=== PATIENT | male | born 1945 | race Caucasian/White ===

== ENCOUNTER 2018-03-22 05:03 | Inpatient (IN) | payer MEDICARE, OTHER ==
[2018-03-21 13:14] LABS: INR 1.03
[2018-03-22] VITALS (14 sets, daily range): BP systolic 16–113; BP diastolic 51–92
[~2018-03-22] VITALS: Ht 172.7 cm; Wt 74.8 kg
[~2018-03-22 05:03] MED LIST: ACETAMINOPHEN 500 MG TAB PO ONE; ALFU10TA9 PO; ASPI-839 PO; ATEN-1 PO; LISI-353 PO; PREGABALIN 75 MG CAPSULE PO ONE; SIMV-54 PO
[2018-03-22] MEDS ORDERED: ACETAMINOPHEN 500 MG TAB PO ONE (05:40)
[2018-03-22] MEDS ORDERED: PREGABALIN 75 MG CAPSULE PO ONE (05:40)
[2018-03-22] MEDS ORDERED: ACETAMINOPHEN(*)1000 MG/100 ML 0 ML IVPB ONE (06:15)
[2018-03-22] MEDS ORDERED: PROPOFOL(*)1000 MG/100 ML VIAL 100 ML ONE (06:15)
[2018-03-22] MEDS ORDERED: DEXAMETHASONE SOD 20MG/5 ML VL ONE (06:17)
[2018-03-22] MEDS ORDERED: PROPOFOL EMUL(*) 10MG/ML 20 ML 20 ML ONE ×2 (07:27→07:28)
[2018-03-22] MEDS ORDERED: LIDOCAINE MPF 1% 5 ML VIAL ONE (07:28)
[2018-03-22] MEDS ORDERED: ONDANSETRON 4 MG/2 ML VIAL ONE (07:28)
[2018-03-22] MEDS ORDERED: NS(*) 0.9% 500 ML BAG 500 ML ONE (07:42)
[2018-03-22] MEDS ORDERED: ALBUTEROL/IPRATROPIUM 3 ML NEB ONE ×2 (08:47→14:23)
[2018-03-22] MEDS ORDERED: MIDAZOLAM 2 MG/2 ML VIAL IVP PRN (09:25)
[2018-03-22] MEDS ORDERED: FAMOTIDINE 20 MG TAB PO ONE (09:25)
[2018-03-22] MEDS ORDERED: NORMOSOL R SOLN(*) 1000 ML BAG 1,000 ML IV PRN (09:25)
[2018-03-22] MEDS ORDERED: LIDOCAINE/SOD BICARB 8.4% SYR ID ONE (09:25)
[2018-03-22] MEDS ORDERED: SUGAMMADEX SOD 200 MG/2 ML SDV ONE (09:29)
[2018-03-22] MEDS ORDERED: ceFAZolin(*) 2GM/D5W 50ML 50 ML IVPB ONE (09:30)
[2018-03-22] MEDS ORDERED: fentaNYL CITR 250 MCG/5 ML AMP ONE (09:30)
[2018-03-22] MEDS ORDERED: GELATIN SPONGE SZ 100 ONE (10:25)
[2018-03-22] MEDS ORDERED: BACITRACIN OINT 15 GM TUBE TP ONE (10:25)
[2018-03-22] MEDS ORDERED: ROPIVACAINE 0.2% 20 ML VIAL ONE (10:25)
[2018-03-22] MEDS ORDERED: PHENYLEPHRINE 10 MG/1 ML VIAL ONE (11:34)
[2018-03-22] MEDS ORDERED: NS(*) 0.9% 250 ML BAG 250 ML ONE (11:38)
[2018-03-22] MEDS ORDERED: VANCOMYCIN 1 GM VIAL ONE (12:27)
[2018-03-22] MEDS ORDERED: fentaNYL CITR 100 MCG/2 ML AMP ONE ×2 (13:46→15:03)
[2018-03-22] MEDS ORDERED: ACETAMINOPHEN(*)1000 MG/100 ML 100 ML IVPB PRN (14:30)
[2018-03-22] MEDS ORDERED: LR(*) 1000 ML BAG 1,000 ML IV PRN (14:30)
[2018-03-22] MEDS ORDERED: ONDANSETRON 4 MG/2 ML VIAL IVP PRN (14:30)
[2018-03-22] MEDS ORDERED: ACETAMINOPHEN 500 MG TAB PO PRN (14:30)
[2018-03-22] MEDS ORDERED: MAGNESIUM HYDROXIDE* 30ML UDCP PO PRN (14:30)
[2018-03-22] MEDS ORDERED: oxyCODONE HCL 5 MG CAP PO PRN (14:30)
[2018-03-22] MEDS ORDERED: FLUSH 10 ML SYR IVP PRN (14:30)
[2018-03-22] MEDS ORDERED: diphenhydrAMINE 25 MG CAP PO PRN (14:30)
[2018-03-22] MEDS ORDERED: HYDROmorphone HCL 2 MG/ML SDV IVP PRN (14:30)
[2018-03-22] MEDS ORDERED: BENZOCAINE/MENTHOL 1 EACH LOZG PO PRN (14:30)
[2018-03-22] MEDS ORDERED: BISACODYL 10 MG SUPP PR PRN (14:30)
--- NOTE | 2018-03-22 15:43 | RADIOLOGY IMAGING REPORT ---
FACILITY: [facility] [place] PATIENT NAME: Chico Dove : 1945 MR: [id number] V: [id number] EXAM DATE: ORDERING PHYSICIAN: LOUIS DOVE TECHNOLOGIST: Location: [facility] [place] Patient: Chico Dove : 1945 Visit/Account:[id number] Date of Sevice: 03/22/2018 Cervical spine one view: HISTORY: C3-C6 laminae, C3-T1 fusion FINDINGS: 2 crosstable lateral views were obtained of the cervical spine. Initial image demonstrates the tip of a pedicle screw projecting over the C3 spinous process. There is severe disc space narro wing at C3-4. Final image demonstrates posterior fusion hardware with pedicle screws C3-C7. IMPRESSION: Cervical spine imaging demonstrating posterior fusion in progress. Report Dictated By: Shelley Pino MD at 03/22/2018 3:35 PM Report E-Signed By: Shelley Pino MD at 03/22/2018 3:38 PM WSN:[email or web address]
--- NOTE | 2018-03-22 16:18 | Hospitalist Consultation ---
History of Present Illness Requesting Physician Dr. Dove Reason for Consult Medical Management Chief Complaint s/p cervical fusion History of Present Illness He was admitted s/p cervical fusion. It is reported the surgery went well and without complication. History Problems: (1) Hyperlipidemia Status: Chronic (2) Hypertension Status: Chronic (3) AAA (abdominal aortic aneurysm) Status: Chronic (4) Carotid artery stenosis Status: Chronic (5) BPH (benign prostatic hyperplasia) Status: Chronic Home Meds Reported Medications Simvastatin (SIMVASTATIN) 40 Mg Tablet, 40 MG PO HS, TAB 03/20/18 Lisinopril/Hydrochlorothiazide (LISINOPRIL-HCTZ 20-12.5 MG TAB) 1 Each Tablet, 1 EACH PO QDAY 03/20/18 Atenolol (ATENOLOL) 50 Mg Tablet, 1 TAB PO QDAY, TAB 03/20/18 Aspirin (ASPIR-LOW) 81 Mg Tablet.dr, 81 MG PO QDAY, TAB 03/20/18 Alfuzosin Hcl (ALFUZOSIN HCL) 10 Mg Tab.er.24h, 10 MG PO QDAY 03/20/18 Allergies: Coded Allergies: No Known Drug Allergies (Unverified , 03/20/18) Hx Smoking: Yes (QUIT AUGUST 2015) Smoking Status: Former Smoker Exposure to Second Hand Smoke?: Yes (CHILDHOOD) Caffeine Intake: Coffee Caffeine/Cups Per Day: 3 CPD Hx Alcohol Use: No Hx Substance Use Disorder: No Review of Systems All Systems Reviewed/Normal: Yes, Except as Noted Exam Vital Signs Vital Signs Date Time Temp Pulse Resp B/P (MAP) Pulse Ox O2 Delivery O2 Flow Rate FiO2 03/22/18 15:30 94 Nasal Cannula 1.0 03/22/18 15:30 64 16 108/74 (85) 03/22/18 15:23 97.5 General Appearance: Alert, Awake, No Acute Distress, Afebrile Neuro: No Gross deficits Cardiovascular: Regular Rate and Rhythm Respiratory: No Respiratory Distress, Clear to Auscultation Psych: Alert & Oriented X3, Appropriate Mood & Affect Assessment and Plan Problems: (1) S/P cervical spinal fusion Status: Acute Assessment & Plan: Followed by Dr. Dove (2) Hypertension Status: Chronic Assessment & Plan: He is on chronic treatment with Lisinopril, Hydrochlorothiazide, and Atenolol. The Lisinopril and Atenolol have been restarted with hold parameters. (3) Hyperlipidemia Status: Chronic Assessment & Plan: He is on chronic treatment with Simvastatin. (4) BPH (benign prostatic hyperplasia) Status: Chronic Assessment & Plan: He is on chronic treatment with Alfuzosin. (5) AAA (abdominal aortic aneurysm) Status: Chronic Assessment & Plan: He did have surgical repair. (6) Carotid artery stenosis Status: Chronic Venous Thromboembolism Antithrombotics Is Pt On Any Antithrombotics?: No Prophylaxis Tx Contraindicated Pharmacological Contraindicati: Surgical Contraindication NAY BRAX[facility] [facility] Mar 22, 2018 16:18
[2018-03-22] MEDS: ceFAZolin(*) 2GM/D5W 50ML 50 ML IVPB SCH (18:25)
[2018-03-22] MEDS: DOCUSATE SODIUM 100 MG CAP PO SCH (20:56)
[2018-03-22] MEDS: SIMVASTATIN 40 MG TAB PO SCH (20:56)
[2018-03-23] MEDS: ceFAZolin(*) 2GM/D5W 50ML 50 ML IVPB SCH (01:15)
[2018-03-23 04:01] VITALS: BP 102/59
[2018-03-23 07:13] VITALS: BP 111/57
--- NOTE | 2018-03-23 08:57 | Hospitalist Progress Note ---
Subjective Progress Notes Subjective He has no complaints this morning. He had no acute events overnight. Patient Complains of: Cardiovascular: No: Chest Pain Respiratory: No: Shortness of Breath Physical Exam Vital Signs Date Time Temp Pulse Resp B/P (MAP) Pulse Ox O2 Delivery O2 Flow Rate FiO2 03/23/18 07:13 98.0 72 16 111/57 (75) 94 Nasal Cannula 1.0 l Intake and Output 03/23/18 06:59 Intake Total 1760.4 ml Output Total 260 ml Balance 1500.4 ml Intake Oral 0 ml IV Total 1760.4 ml Output Drainage Total 260 ml # Voids 2 General Appearance: Alert, Awake, No Acute Distress, Afebrile Neuro: No Gross deficits Cardiovascular: Regular Rate and Rhythm Respiratory: No Respiratory Distress, Clear to Auscultation Psych: Alert & Oriented X3, Appropriate Mood & Affect Assessment and Plan Problems: (1) S/P cervical spinal fusion Status: Acute Assessment & Plan: Followed by Dr. Dove (2) Hypertension Status: Chronic Assessment & Plan: He is on chronic treatment with Lisinopril, Hydrochlorothiazide, and Atenolol. The Lisinopril and Atenolol have been restarted with hold parameters. (3) Hyperlipidemia Status: Chronic Assessment & Plan: He is on chronic treatment with Simvastatin. (4) BPH (benign prostatic hyperplasia) Status: Chronic Assessment & Plan: He is on chronic treatment with Alfuzosin. (5) AAA (abdominal aortic aneurysm) Status: Chronic Assessment & Plan: He did have surgical repair. (6) Carotid artery stenosis Status: Chronic Exam Sepsis Risk: No Definite Risk NAY [facility] Mar 23, 2018 08:57
[2018-03-23] MEDS: LISINOPRIL 20 MG TAB PO SCH (09:00)
[2018-03-23] MEDS: ATENOLOL 50 MG TAB PO SCH (09:00)
[2018-03-23] MEDS: DOCUSATE SODIUM 100 MG CAP PO SCH ×2 (09:06→20:40)
[2018-03-23] MEDS: ALFUZOSIN HCL 10 MG TABCR PO SCH (09:06)
[2018-03-23 10:00] VITALS: BP 14/63
[2018-03-23 10:50] VITALS: BP 104/62
[2018-03-23 13:25] VITALS: Ht 172.7 cm; Wt 74.8 kg
[2018-03-23] MEDS ORDERED: LOR5/325 PO (14:00)
[2018-03-23] MEDS ORDERED: DOCU240C84 PO (14:01)
[2018-03-23] MEDS: APAP/HYDROCODONE 325/5 TAB PO PRN ×2 (15:00→22:08)
--- NOTE | 2018-03-23 15:06 | RADIOLOGY IMAGING REPORT ---
[place] [facility] [place] NAME: Ch[place] Dove : 1945 MR: [id number] V: [id number] EXAM DATE: ORDERING PHYSICIAN: LOUIS DOVE TECHNOLOGIST: Location: [facility] Patient: Chico Dove : 1945 Visit/Account:[id number] Date of Sevice: 03/23/2018 Exam type: CERVICAL SPINE 2 OR 3 VIEW History: Postop C3-C6 laminectomy and C3-C7 fusion Comparison: 03/22/2018. Findings: Postoperative changes are noted from posterior fusion C3-C7. No hardware complication is seen. The C2 -C3 articulation demonstrates some angulation of the C2 vertebral body possibly positional. Spondylit ic changes noted throughout cervical spine. IMPRESSION: 1. Postoperative changes are noted from C3-C7 fusion without hardware complication. C2 is angulated s omewhat anteriorly with respect to C3 possibly positional. Report Dictated By: Silver Benjamin MD at 03/23/2018 2:59 PM Report E-Signed By: Silver Benjamin MD at 03/23/2018 3:02 PM WSN:[id number]
[2018-03-23 15:45] VITALS: BP 104/63
[2018-03-23 20:38] VITALS: BP 106/73
[2018-03-23] MEDS: SIMVASTATIN 40 MG TAB PO SCH (20:40)
[2018-03-24 04:55] VITALS: BP 91/64
[2018-03-24] MEDS: APAP/HYDROCODONE 325/5 TAB PO PRN ×2 (07:10→16:12)
[2018-03-24] MEDS: ATENOLOL 50 MG TAB PO SCH (09:00)
[2018-03-24] MEDS: LISINOPRIL 20 MG TAB PO SCH (09:00)
[2018-03-24 09:03] VITALS: BP 132/80
[2018-03-24] MEDS: DOCUSATE SODIUM 100 MG CAP PO SCH ×2 (09:08→21:05)
[2018-03-24] MEDS: ALFUZOSIN HCL 10 MG TABCR PO SCH (09:08)
[2018-03-24 11:31] VITALS: BP 128/88
[2018-03-24 15:18] VITALS: BP 127/82
[2018-03-24 19:37] VITALS: BP 113/78
[2018-03-24] MEDS ORDERED: SALINE 0.65% NAS SPR 44 ML BTL PRN (20:50)
[2018-03-24] MEDS: SIMVASTATIN 40 MG TAB PO SCH (21:05)
[2018-03-25 00:32] VITALS: BP 120/67
[2018-03-25 02:57] VITALS: BP 138/91
[2018-03-25] MEDS: APAP/HYDROCODONE 325/5 TAB PO PRN ×2 (03:15→07:51)
[2018-03-25 07:51] VITALS: BP 106/9
[2018-03-25] MEDS: ATENOLOL 50 MG TAB PO SCH (07:57)
[2018-03-25] MEDS: LISINOPRIL 20 MG TAB PO SCH (07:57)
[2018-03-25] MEDS: DIAZEPAM 5 MG TAB PO PRN ×2 (09:33→10:09)
[2018-03-25] MEDS: ALFUZOSIN HCL 10 MG TABCR PO SCH (09:33)
[2018-03-25] MEDS: DOCUSATE SODIUM 100 MG CAP PO SCH (09:33)
--- NOTE | 2018-03-25 10:33 | Hospitalist Progress Note ---
Subjective Progress Notes Subjective 72M admitted after cervical fusion, PIYUSH overnight. Drain output decreased, likely home today. Patient Complains of: Cardiovascular: No: Chest Pain Gastrointestinal: No Nausea, No Vomiting Physical Exam Vital Signs Date Time Temp Pulse Resp B/P (MAP) Pulse Ox O2 Delivery O2 Flow Rate FiO2 03/25/18 09:39 83 03/25/18 07:51 97.6 130 18 106/9 (41) Nasal Cannula 2.0 Intake and Output 03/25/18 06:59 Intake Total 1680 ml Output Total 87 ml Balance 1593 ml Intake Oral 1680 ml Drainage Total 87 ml # Voids 3 General Appearance: Alert, Awake, No Acute Distress Neuro: No Gross deficits Eyes: PERRLA ENT: Normal Neck: Other (+ C collar) Cardiovascular: Normal Rhythm & Peripheral Pulses Respiratory: No Respiratory Distress GI: Soft and Non-Tender Extremities: Soft and Non Tender, Warm, Pulses, Perfused Psych: Alert & Oriented X3 Assessment and Plan Problems: (1) S/P cervical spinal fusion Status: Acute Assessment & Plan: Followed by Dr. Dove (2) Hypertension Status: Chronic Assessment & Plan: He is on chronic treatment with Lisinopril, Hydroch lorothiazide, and Atenolol. The Lisinopril and Atenolol have been restarted with hold parameters. (3) Hyperlipidemia Status: Chronic Assessment & Plan: He is on chronic treatment with Simvastatin. (4) BPH (benign prostatic hyperplasia) Status: Chronic Assessment & Plan: He is on chronic treatment with Alfuzosin. (5) AAA (abdominal aortic aneurysm) Status: Chronic Assessment & Plan: He did have surgical repair. (6) Carotid artery stenosis Status: Chronic Exam Sepsis Risk: No Definite Risk BAILEY SEBAS ADAMS DO Mar 25, 2018 10:33
--- NOTE | 2018-03-27 12:52 | OPERATIVE REPORT 1 ---
EVENT DATE: March 22, 2018 SURGEON: Baljit Dove MD ANESTHESIOLOGIST: Cliff Diaz MD ANESTHESIA: General endotracheal. 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 PROCEDURE PERFORMED C3 to C6 laminectomy with C3 to C7 posterolateral instrumented effusion. IV FLUIDS 1900 cc. ESTIMATED BLOOD LOSS 80 cc. IMPLANTS USED 3.5 mm x 14 mm Polyaxial screws from [employer] times 10, custom cut connecting rods from [employer] times 2 and locking caps from [employer] x 10. SPECIMENS None DRAINS A 7 mm flat Negrito Vyas drain. COMPLICATIONS None. DISPOSITION Post anesthesia care unit. INDICATIONS FOR SURGERY Mr. Dove is a 72-year-old gentleman who presented with bilateral upper extremity pain, numbness and tingling. This was accompanied by difficulty with performance of fine motor skills such as buttoning buttons, tieing his shoelaces or signing his name. He noted numbness and tingling in the same distribution as his pain and weakness in the right greater than left upper extremity. He does have some lower extremity issues that he believes are secondary to a previously performed low back surgery. His physical examination was significant for a positive Lhermitte's sign and strongly positive Spurling's maneuver to the right. His upper extremity strength was diminished at 4 out of 5 in the right deltoid compared to the left and decreased strength in bilateral biceps. He had subjectively decreased light touch sensation and a strongly positive Mcbride's sign bilaterally with some clonus in the right hand as well. He had 4-5 beats of clonus in his ankles bilaterally. Imaging studies showed severe spinal stenosis secondary to both anterior and posterior compression at C3-4, C4-5, and C5-6. He did, however, have normal cervical lordosis. There was some increased signal in the cord as well. Secondary to ongoing symptoms and failure of nonsurgical care, Mr. Dove was offered and elected to undergo cervical laminectomy and fusion. Prior to surgery, I explained in detail to the patient the possible risks of surgery. These risks include bleeding, infection, damage to surrounding structures, nerve root injury, spinal cord injury, spinal fluid leak, meningitis, persistent and/or worsening pain, , blindness, sexual dysfunction, autonomic nervous system dysfunction, and other unforeseen medical and surgical complications. An understanding that in general spinal surgery is more predictive at preventing progression of spinal cord dysfunction rather than improvement was stressed. Further discussion regarding better outcome with regard to extremity discomfort rather than axial spinal pain was also discussed. DESCRIPTION OF PROCEDURE On the day of surgery the patient was met in the preoperative hold area and all questions were answered. The operative site was identified and marked by myself. The patient was brought in good condition to the operating room and after succumbing to anesthesia, I placed the GRIFFIN headrest using the tongues and tightened at the 60 PSI. The patient was then turned into the prone position and the GRIFFIN headrest attached to the bed attachment. All bony protuberances were well padded in the standard fashion. Care was taken to maintain appropriate perfusion pressures during anesthesia through the use of invasive monitoring with an arterial line. Preoperative antibiotics were administered according to the appropriate timing schedule. At the conclusion of the procedure, sponge and need counts were correct times 2. Final timeout was undertaken by members of the operating team to confirm correct patient, correct levels and correct surgery. A vertical incision was then made from just below the occiput down to the prominence of the T-1 spinous process. Sharp dissection was carried out down to the ligamentum nuchae which was divided. Posterior spinal musculature was then elevated off the spine in a subperiosteal manner, clearing the spine of all soft tissues out to the lateral aspect of the lateral masses from C3 down to C7. A lateral radiograph was obtained to confirm appropriate spinal levels. A Leksell rongeur was used to remove the interspinous ligaments between C2 and C3 and between C6 and C7. I then went ahead and prepared hole for my lateral mass screws using a modified Magerl technique and starting with a 2 mm ball virgilio, I started those holes in an up and out position bilaterally, C3, C4, C5, and C6 and then a directly lateral at C7. A 14 mm drill was then used in all of these holes as well and all holes were tapped [id number] at the near cortex. These holes were waxed with bone wax if they were bleeding and attention was then turned to the laminectomy portion of the procedure. A high speed virgilio was used to cut a trough at approximately the intersection of the lateral mass and the lamina itself bilaterally. Penetrating towel clamps were attached to the C3 and C6 spinous processes and upward pressure was pulled on these throughout the decompression. As I deepened the bone troughs bilaterally, I watched for motion of the spinous processes confirming completion of the laminectomy. I then carefully elevated the lamina of C3, C4, C5, and C6 en bloc from the round valley bed, exposing the spinal cord. Good pulsations were seen within the thecal sac. I then utilized a nerve hook to check the lateral recesses and insure that there were no bony spikes or any persistent pressure on the spinal cord itself. Ligamentum flavum was removed from the superior aspect of C7 and ultimately we had excellent decompression of the spinal cord. Surgicel was used along the lateral gutters to obtain hemostasis and then we turned our attention to placement of the orthopedic implants. 3.5 mm x 14 mm screws were placed through the previously prepared holes at C3, C4, C5, C6, and C7 bilaterally. A template was then used to determine appropriate length for the connecting angy which was cut to length for both sides. The screw heads were then turned in the cephalad caudad orientation and the connecting rods were placed bilaterally. Locking caps were placed at every level and tightened only at C3. An pharmacy sales assistant then unlocked the GRIFFIN headrest attachment so that I could bring the cervical spine into as much lordosis as possible. Once this was accomplished, we tightened down all of the remaining locking caps and then finally tightened them with the torque limiting device. The wound was then irrigated with copious sterile saline solution and then I burred down the facet joints at each level as well as the lateral masses. We then packed a combination of local bone and demineralized bone matrix out lateral to the screw angy construct bilaterally. The wound was then closed in layers using interrupted sutures for the ligament nuchae and the inverted interrupted sutures for the subcutaneous tissue, followed by a running locking nylon stitch for the skin. A 7 mm flat Negrito Vyas drain was left deep to the ligamentum nuchae. The patient was then turned back into the supine position on the gurney and the GRIFFIN headrest was removed. No significant oozing was seen from the pin sites. The patient was extubated and taken to the PACU in good condition. POSTOPERATIVE CARE PLAN Will be for him to remain in the hospital until his drain output decreases to less than 40 cc per shift and he will then be discharged home with instructions to follow up in 2 weeks for wound check, suture removal, and examination. SARA
== END 2018-03-25 11:20 | disposition home or self-care (01) | DRG 473 ==
LOC: OR 05:03 → MED 15:23
PROVIDERS: ADMIT Orthopaedic Surgery; ATTEND Orthopaedic Surgery
PROC: 0RG2071 Fusion of 2 or more Cervical Vertebral Joints with Autologous Tissue Substitute, Posterior Approach, Posterior Column, Open Approach (ICD-10-PCS; principal; 2018-03-22 10:44)
DX: M50.01 Cervical disc disorder with myelopathy, high cervical region (principal); I10 Essential (primary) hypertension; N40.0 Benign prostatic hyperplasia without lower urinary tract symptoms; I71.4 Abdominal aortic aneurysm, without rupture; E78.5 Hyperlipidemia, unspecified; I65.29 Occlusion and stenosis of unspecified carotid artery; G25.2 Other specified forms of tremor; Z87.891 Personal history of nicotine dependence
CPT/HCPCS: 36415; 72020; 72040; 85610; 86850; 86900; 86901; 94640; 97161; C1713; J0131; J0690; J1100; J2001; J2370; J2405; J2704; J2795; J3010; J3370; J7040; J7050; L0120; Q0163